=== PATIENT | female | born 1940 | race Caucasian/White ===

== ENCOUNTER → 2016-11-04 | Day surgery (SDC) | payer MEDICARE ==
[~2016-11-04] MED LIST: BUPIVACAINE/EPINEPHRINE 0.5% PF 30 ML VIAL ONE; CYCL-36 PO; KETOROLAC TROMETHAMINE 30 MG/ML (IVP) VIAL IV PUSH ONE; LACTATED RINGER'S 1000 ML INJ 1,000 ML ONE; MIDAZOLAM HCL 2 MG/2 ML VIAL ONE; NAPR-576 PO; ONDANSETRON HCL 4 MG/2 ML VIAL IV PUSH ONE; PROPOFOL 100 MG/10 ML INJ IV ONE; ceFAZolin INJ 1,000 MG VIAL ONE
--- NOTE | 2016-11-04 16:28 | TN ---
cc: SOL OJEDA DATE OF OPERATION 11/04/1967 PREOPERATIVE DIAGNOSIS 1. Internal derangement of the right knee. 2. Possible lateral meniscus tear, right knee. 3. Possible synovial plica, right knee. POSTOPERATIVE DIAGNOSIS 1. Synovial plica, right knee. 2. Complex tear anterior lateral meniscus. PROCEDURE 1. Arthroscopy pf the right knee. 2. Arthroscopic lateral meniscectomy. 3. Resection synovial plica. SURGEON Sol Ojeda MD ANESTHESIA General. ESTIMATED BLOOD LOSS Minimal. INDICATION This is 76-year-old female with pain in the anterior aspect of her right knee. She has anterolateral discomfort associated with activities. She has an MRI scan which is equivocal for lateral meniscus tear. On physical examination this is likely consistent with a synovial plica. Extensive conservative care includes restrictions, medications and injections. She continued to be painful so she now presents for surgical treatment. PROCEDURE The patient was brought to the operating room, anesthetized in the supine position. The right leg was scrubbed with alcohol, followed by Hibiclens, followed by Chloraprep and draped sterilely in the arthroscopy martinez. A time-out was done. Antibiotics were given within a 1 hour time window. After exsanguination the tourniquet was inflated to 260 mmHg. Inflow established anterior and medially. The suprapatellar pouch was unremarkable. Retropatellar surface was essentially unremarkable. There were no loose bodies in the medial gutter. On the lateral side there was significant fraying along the edge of the articular cartilage and a very large synovial plica extending across this region. Extending into the lateral compartment there was irregularity of the anterolateral meniscus that once this was probed we found that there had been a split of the lateral meniscus and was flipped underneath from about the 7 o'clock position all the way back and underneath to about the 9:30 position. Spinal needle was introduced along the lateral joint line. A meniscal debrider was utilized and we did a synovectomy involving all the synovial plica extending up to the level of the patella and across down almost to the level of the knee itself. The lateral meniscus was taken back from its anterior horn attachment to approximately the 9 o'clock position. We were able to leave the root attached and the rim attachment but the central portion which was torn was resected. The wound was irrigated copiously. Hemostasis was controlled. The rest of the knee had been evaluated. We found that the ACL was normal. The medial compartment was totally normal. The articular cartilage showed only minimal changes in all three compartments The patient tolerated the procedure well. He was taken to the recovery room in satisfactory condition. MD HERVE Ruiz/DAMARIS /3:41 PM /4:16 PM
== END | disposition home or self-care (01) ==
LOC: ESDC 12:49
PROVIDERS: ATTEND Orthopaedic Surgery Orthopaedic Surgery of the Spine
DX: S83.271A Complex tear of lateral meniscus, current injury, right knee, initial encounter (principal); M67.51 Plica syndrome, right knee
CPT/HCPCS: 01400; 29881; J0690; J1885; J2250; J2405; J3010; J7120